=== PATIENT | female | born 1985 | race Two or more races ===

== ENCOUNTER 2017-01-20 13:06 | Emergency (ER) | payer MEDICAID ==
[~2017-01-20] VITALS: Ht 162.6 cm; Wt 100.4 kg
[2017-01-20 13:43] LABS: Basophils # (auto) 0 uL; Basophils % (auto) 0.5 % (0.0-2.0); Eosinophils # (auto) 0.1 uL; Eosinophils % (auto) 1.4 % (0.0-7.0); Hematocrit 41.9 % (36.0-46.0); Hemoglobin 14.2 g/dL (12.2-16.2); Lymphocytes # (auto) 1.9 uL; Lymphocytes % (auto) 22.1 % (10.0-50.0); Mean Corpuscular Hemoglobin 29.5 pg (28.0-32.0); Mean Corpuscular Hgb Conc. 33.9 g/dL (32.0-36.0); Mean Corpuscular Volume 86.9 fL (80.0-100.0); Mean Platelet Volume 9.5 fL (7.4-10.4); Monocytes # (auto) 0.7 uL; Monocytes % (auto) 8.2 % (0.0-12.0); Neutrophils # (auto) 5.7 uL; Neutrophils % (auto) 67.8 % (37.0-80.0); Platelet Count (auto) 314 10^3/uL (140-450); Red Cell Distribution Width 12.4 % (11.6-16.0); White Blood Cell 8.5 10^3/uL (4.4-10.8)
[2017-01-20 13:58] LABS: Albumin 3.6 g/dL (3.4-5.0); BUN/Creatinine Ratio 13.9; Calcium 8.4 mg/dL (8.5-10.1); Potassium 3.9 mmol/L (3.5-5.1)
[2017-01-20 14:03] LABS: Bilirubin, Total 0.4 mg/dL (0.2-1.0); Total Protein 7.6 g/dL (6.4-8.2)
[2017-01-20 16:49] LABS: Urine Bilirubin Negative (Negative); Urine Blood Negative /uL (Negative); Urine Color Yellow (Yellow); Urine Glucose Normal (Normal); Urine Ketone Negative (Negative); Urine Nitrite Negative (Negative); Urine RBC 3 /hpf (0 - 4); Urine Squamous Epithelial Cell FEW /hpf (<5); Urine Urobilinogen Normal (Negative)
[2017-01-20 17:25] VITALS: BP 120/68
== END 2017-01-20 17:28 | disposition home or self-care (01) ==
LOC: ER 13:09
DX: R42 Dizziness and giddiness (principal); F41.9 Anxiety disorder, unspecified; R51 Headache
CPT/HCPCS: 36415; 80053; 81001; 81025; 85025; 93005

== ENCOUNTER 2022-10-31 23:02 | Emergency (ER) | payer MEDICAID ==
[~2022-10-31] VITALS: Ht 162.6 cm; Wt 95.5 kg
[2022-10-31 23:30] VITALS: BP 138/62
[2022-10-31] MEDS ORDERED: ALPRAZolam 0.5 MG TAB PO ONE (23:30)
[2022-11-01] MEDS ORDERED: HYDR50CA PO (00:07)
== END 2022-11-01 00:37 | disposition home or self-care (01) ==
LOC: ER 23:02
DX: F41.0 Panic disorder [episodic paroxysmal anxiety] (principal)

== ENCOUNTER 2023-08-27 22:50 | Emergency (ER) | payer MEDICAID ==
[~2023-08-27] VITALS: Ht 162.6 cm; Wt 104.2 kg
[~2023-08-27 22:50] MED LIST: HYDR50CA PO
[2023-08-28 00:08] LABS: Basophils # (auto) 0.1 10 ^3/uL (0-0.2); Basophils % (auto) 0.7 % (0.0-2.0); Eosinophils # (auto) 0.1 10 ^3/uL (0-0.8); Eosinophils % (auto) 0.9 % (0.0-7.0); Hemoglobin 13.7 g/dL (12.2-16.2); Lymphocytes # (auto) 1.8 10 ^3/uL (0.4-5.4); Lymphocytes % (auto) 19.1 % (10.0-50.0); Mean Corpuscular Hemoglobin 29.4 pg (28.0-32.0); Mean Corpuscular Hgb Conc. 33.3 g/dL (32.0-36.0); Mean Corpuscular Volume 88.3 fL (80.0-100.0); Monocytes # (auto) 0.8 10 ^3/uL (0-1.3); Neutrophils # (auto) 6.5 10 ^3/uL (1.6-8.6); Neutrophils % (auto) 70.3 % (37.0-80.0); Red Blood Cells 4.65 10^6/uL (4.0-5.20); Red Cell Distribution Width 13.1 % (11.8-14.3); White Blood Cell 9.3 10^3/uL (4.4-10.8)
[2023-08-28 00:24] LABS: Alanine Aminotransferase 30 U/L (7-40); Albumin 4.3 g/dL (3.2-4.8); Alkaline Phosphatase 64 U/L (46-116); Anion Gap 6 (5-15); Aspartate Aminotransferase 13 U/L (13-40); BUN/Creatinine Ratio 16.9 (10.0-20.0); Bilirubin, Total 0.5 mg/dL (0.2-1.0); Blood Urea Nitrogen 13 mg/dL (9-23); Carbon Dioxide 26 mmol/L (20-30); Chloride 106 mmol/L (98-107); Glucose 115 mg/dL (74-106); Potassium 3.9 mmol/L (3.5-5.1); Sodium 138 mmol/L (136-145)
[2023-08-28] MEDS ORDERED: HYDR25CA PO (02:20)
[2023-08-28] MEDS ORDERED: LORazepam 0.5 MG TAB PO ONE (02:30)
[2023-08-28] MEDS ORDERED: ONDANSETRON ODT 4 MG TAB PO ONE (02:30)
[2023-08-28 03:30] VITALS: BP 140/89; PULSE 98; RESP 20; TEMP 98.5; O2SAT 97
== END 2023-08-28 03:26 | disposition home or self-care (01) ==
LOC: ER 22:50
DX: F41.9 Anxiety disorder, unspecified (principal)
CPT/HCPCS: 36415; 80053; 84484; 85025; 93005; 99284; Q0162

== ENCOUNTER 2023-11-06 17:05 | Emergency (ER) | payer MEDICAID ==
[~2023-11-06] VITALS: Ht 162.6 cm; Wt 99.4 kg
[~2023-11-06 17:05] MED LIST changes: +HYDR25CA PO
[2023-11-06 18:30] VITALS: BP 140/70; PULSE 111; RESP 18; O2SAT 96
[2023-11-06] MEDS: DexAMETHasone SOD PHOS 10MG/1ML VIAL INJ IM ONE (19:00)
[2023-11-06] MEDS: cefTRIAXone SOD 1,000 MG VL IM ONE (19:00)
[2023-11-06 19:01] VITALS: TEMP 98.9
[2023-11-06] MEDS: IBUPROFEN 800 MG TAB PO ONE (19:01)
[2023-11-06] MEDS: LIDOCAINE VISCOUS 2% 15ML UD MT ONE (19:01)
[2023-11-06] MEDS ORDERED: PRED20TA2 PO (19:11)
[2023-11-06] MEDS ORDERED: LIDO2SOL18 MT (19:11)
[2023-11-06] MEDS ORDERED: BENZ200C64 PO (19:11)
[2023-11-06] MEDS ORDERED: CLIN150C18 PO (19:11)
== END 2023-11-06 19:18 | disposition home or self-care (01) ==
LOC: ER 17:05
DX: J03.90 Acute tonsillitis, unspecified (principal)
CPT/HCPCS: 96372; 99284; J0696; J1100

== ENCOUNTER 2023-11-18 18:49 | Emergency (ER) | payer MEDICAID ==
[~2023-11-18] VITALS: Ht 162.6 cm; Wt 95.3 kg
[~2023-11-18 18:49] MED LIST changes: +BENZ200C64 PO; +CLIN150C18 PO; +LIDO2SOL18 MT; +PRED20TA2 PO
[2023-11-18 22:28] LABS: Basophils # (auto) 0.1 10 ^3/uL (0-0.2); Basophils % (auto) 0.8 % (0.0-2.0); Eosinophils # (auto) 0.1 10 ^3/uL (0-0.8); Eosinophils % (auto) 0.6 % (0.0-7.0); Hematocrit 43.6 % (36.0-46.0); Hemoglobin 14.4 g/dL (12.2-16.2); Lymphocytes # (auto) 2.2 10 ^3/uL (0.4-5.4); Lymphocytes % (auto) 20.9 % (10.0-50.0); Mean Corpuscular Hemoglobin 29.3 pg (28.0-32.0); Mean Corpuscular Hgb Conc. 33.1 g/dL (32.0-36.0); Mean Corpuscular Volume 88.5 fL (80.0-100.0); Monocytes # (auto) 0.9 10 ^3/uL (0-1.3); Neutrophils # (auto) 7.2 10 ^3/uL (1.6-8.6); Neutrophils % (auto) 68.7 % (37.0-80.0); Nucleated Red Blood Cells % 0.1 %; Red Blood Cells 4.93 10^6/uL (4.0-5.20); Red Cell Distribution Width 13.2 % (11.8-14.3); White Blood Cell 10.5 10^3/uL (4.4-10.8)
[2023-11-18 22:39] LABS: Alanine Aminotransferase 30 U/L (7-40); Albumin 4.4 g/dL (3.2-4.8); Alkaline Phosphatase 55 U/L (46-116); Anion Gap 6 (5-15); Aspartate Aminotransferase 19 U/L (13-40); BUN/Creatinine Ratio 11.1 (10.0-20.0); Bilirubin, Total 0.6 mg/dL (0.2-1.0); Blood Urea Nitrogen 8 mg/dL (9-23); Calcium 9.4 mg/dL (8.5-10.1); Carbon Dioxide 26 mmol/L (20-30); Chloride 107 mmol/L (98-107); Glucose 101 mg/dL (74-106); Potassium 3.7 mmol/L (3.5-5.1); Sodium 139 mmol/L (136-145); Total Protein 7.4 g/dL (5.7-8.2)
[2023-11-19 00:32] LABS: Rapid Strep A Screen-Throat Negative
[2023-11-19] MEDS ORDERED: LIDO2SOL18 MT (00:44)
[2023-11-19] MEDS ORDERED: IBUP1TAB5 PO (00:44)
[2023-11-19] MEDS ORDERED: FAMO20TA10 PO (00:51)
[2023-11-19 01:15] VITALS: BP 124/72; PULSE 99; RESP 20; TEMP 98.2; O2SAT 97
[2023-11-19] MEDS: LORazepam 0.5 MG TAB PO ONE (01:35)
== END 2023-11-19 06:08 | disposition home or self-care (01) ==
LOC: ER 18:49
DX: J02.9 Acute pharyngitis, unspecified (principal); R59.0 Localized enlarged lymph nodes; F41.9 Anxiety disorder, unspecified; R07.89 Other chest pain; K21.9 Gastro-esophageal reflux disease without esophagitis; Z79.2 Long term (current) use of antibiotics; Z79.899 Other long term (current) drug therapy
CPT/HCPCS: 36415; 70490; 80053; 84484; 85025; 86308; 87070; 87880; 93005